=== PATIENT | male | born 1990 | race Caucasian/White ===

== ENCOUNTER 2018-11-24 21:02 | Emergency (ER) | payer SELFPAY ==
[2018-11-24 21:28] VITALS: BP 131/82
[2018-11-24] MEDS ORDERED: Ketorolac *IM* INJ* 60 MG/2 ML VIAL IM ONE (21:41)
[2018-11-24] MEDS ORDERED: Cyclobenzaprine TAB* 10 MG PO ONE (21:42)
[2018-11-24] MEDS ORDERED: Acyclovir* 200 MG CAP PO ONE (21:43)
--- NOTE | 2018-11-24 21:49 | UC ---
UC General HPI - HPI Summary HPI Summary: 28-year-old male comes in with a chief complaint of low back pain. Started yesterday at rest. It's in his middle lower back. He comes in spasms. It's worst in the middle of the back but it's on both sides also. Occasionally pain radiates down his buttocks into his legs. No weakness or numbness. Pain is worse with twisting turning bending. Some positions decrease the pain. He's taken acetaminophen without much relief. No change in bowel or bladder. Patient also has a painful rash in the left upper arm and left axilla. Describes it as an achy pain. No fevers or chills. - History of Current Complaint Chief Complaint: UCBackPain Stated Complaint: SKIN CONCERN/BACK PAIN Time Seen by Provider: 11/24/18 21:20 Pain Intensity: 6 - Allergy/Home Medications Allergies/Adverse Reactions: Allergies Allergy/AdvReac Type Severity Reaction Status Date / Time No Known Allergies Allergy Verified 11/24/18 21:26 Home Medications: Home Medications Acetaminophen [Tylenol Extra Strength] 1,000 mg PO DAILY 11/24/18 [History Confirmed 11/24/18] Atorvastatin* [Lipitor*] 20 mg PO DAILY 11/24/18 [History Confirmed 11/24/18] Cetirizine* [ZyrTEC 10 MG TAB*] 10 mg PO DAILY 11/24/18 [History Confirmed 11/24] Omeprazole Magnesium [Prilosec] 10 mg PO DAILY 11/24/18 [History Confirmed 11/24] sulfaSALAzine TAB* [Azulfidine TAB*] 1,000 mg PO BID 11/24/18 [History Confirmed 11/24/18] PMH/Surg Hx/FS Hx/Imm Hx Previously Healthy: Yes Other GI/ History: INFLAMMATORY BOWEL DISEASE - Surgical History Surgical History: Yes Surgery Procedure, Year, and Place: R shoulder surgery 2005 - Family History Known Family History: Positive: Non-Contributory - Social History Alcohol Use: Occasionally Substance Use Type: None Smoking Status (MU): Never Smoked Tobacco Review of Systems All Other Systems Reviewed And Are Negative: Yes Constitutional: Positive: Negative Skin: Positive: Rash - SEE HPI Eyes: Positive: Negative ENT: Positive: Negative Respiratory: Positive: Negative Cardiovascular: Positive: Negative Gastrointestinal: Positive: Negative Genitourinary: Positive: Negative Motor: Positive: Other - SEE HPI Neurovascular: Positive: Negative Musculoskeletal: Positive: Other: - SEE HPI Neurological: Positive: Negative Psychological: Positive: Negative Is Patient Immunocompromised?: Yes - ON SULFASALAZINE Physical Exam Triage Information Reviewed: Yes Appearance: Well-Appearing, Well-Nourished, Pain Distress - MILD WITH ROM OF LOW BACK Vital Signs: Initial Vital Signs Temp 98.5 F 11/24/18 21:21 Pulse 78 11/24/18 21:21 Resp 14 11/24/18 21:21 BP 131/82 11/24/18 21:21 Pulse Ox 99 11/24/18 21:21 Vital Signs Reviewed: Yes Eye Exam: Normal Eyes: Positive: Conjunctiva Clear Neck: Positive: Supple Respiratory: Positive: No respiratory distress Musculoskeletal: Positive: Other: - Tender to palpation mid lower back and both sides laterally at the same level. Legs have full range of motion full- strength no sensation deficit. Neurological: Positive: Alert, Muscle Tone Normal Psychological Exam: Normal Psychological: Positive: Normal Response To Family, Age Appropriate Behavior Skin: Positive: Other - Patches of raised erythematous rash in the left axilla and in the left trapezius area and also approximately to the upper thoracic area consistent with shingles. Course/Dx - Course Course Of Treatment: Further shingles starting the patient on valacyclovir 1 g by mouth 3 times a day 10 days. Patient is immunocompromised due to medication for his inflammatory bowel disease. Low back pain is on both sides he has no abdominal pain at its worse with position changes consistent with acute low back pain. He has no neurologic deficit no fever vital signs are stable. I wrote prescription for Flexeril he can also take acetaminophen. Due to his GI condition is been told to not take by mouth NSAIDs. Follow-up his primary care doctor get reevaluated sooner if worse or any questions or concerns. - Diagnoses Provider Diagnosis: Low back pain, Shingles Discharge - Sign-Out/Discharge Documenting (check all that apply): Patient Departure All imaging exams completed and their final reports reviewed: No Studies - Discharge Plan Condition: Stable Disposition: HOME Prescriptions: Cyclobenzaprine TAB* [Flexeril 10 MG TAB*] 10 mg PO TID PRN #15 tab MDD 3 PRN Reason: Pain Valacyclovir HCl [Valacyclovir] 1 gm PO TID #30 tab Patient Education Materials: Shingles (ED), Acute Low Back Pain (ED), Lower Back Exercises (ED) Referrals: [facility] [Outside] Additional Instructions: FOLLOW UP WITH YOUR DOCTOR IF NOT COMPLETELY IMPROVED. GET REEVALUATED SOONER IF WORSE; PAIN, FEVER, YOU FEEL ILL OR ANY QUESTIONS OR CONCERNS. - Billing Disposition and Condition Condition: STABLE Disposition: Home
== END 2018-11-24 22:03 | disposition home or self-care (01) ==
LOC: UCCORT 21:02
DX: M54.5 Low back pain (principal); B02.9 Zoster without complications; K63.89 Other specified diseases of intestine
CPT/HCPCS: 96372; 99202; A9270-GY; G0463; J1885

== ENCOUNTER 2019-01-18 12:18 | Emergency (ER) | payer BC | END 2019-01-18 12:34 | disposition left against medical advice (07) | LOC: UCCORT 12:18 | DX: M54.5 Low back pain (principal); Z53.21 Procedure and treatment not carried out due to patient leaving prior to being seen by health care provider ==

== ENCOUNTER 2019-07-18 17:43 | Emergency (ER) | payer BC ==
--- OUTSIDE RECORDS SUMMARY | 2019-07-18 18:00 | XMS REPORT | Continuity of Care Document ---
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 Problems Active Problems Provider Date Hyperlipidemia Dilip Cloud MD Onset: 01/19/2019 Nontoxic single thyroid nodule Dilip Cloud MD Onset: 01/19/2019 Mixed hyperlipidemia Cam Presley MD Onset: 01/20/2019 Gastroesophageal reflux disease Cam Presley MD Onset: 01/24/2019 Ulcerative colitis Cam Presley MD Onset: 01/24/2019 Social History Type Date Description Comments Sex Unknown Tobacco Use Start: Unknown Never Smoked Cigarettes Smoking Status Reviewed: 07/15/19 Never Smoked Cigarettes Smokeless Tobacco Never Used Smokeless Tobacco ETOH Use Occasionally consumes alcohol Tobacco Use Start: Unknown Patient denies history of smoking Recreational Drug Use Never Used Drugs Allergies, Adverse Reactions, Alerts Active Allergies Reaction Severity Comments Date Seasonal 01/19/2019 Medications Active Medications SIG Qnty Indications Ordering Provider Date Benzonatate 1 tab by mouth 30caps J06.9 Betty Foley, 07/15/2019 200mg three times a MD Capsules day as needed for cough. Albuterol Sulfate HFA inhale two 18units J06.9 Betty Foley, 07/15/2019 puffs by mouth 108(90Base) mcg/Act every 4 hours Aerosol as needed for cough and wheeze Sulfazine 2 tabs 2x a day 180tabs Cam Presley MD 500mg Tablets Levothyroxine Sodium Kade Reese MD 50mcg Tablets Famotidine Kade Reese MD 40mg Tablets History Medications Pantoprazole Sodium take 1 tablet by mouth 90tabs Dilip Cloud, 2018 - daily for 07/15/2019 40mg Tablets gastroesophageal reflux disease, 30 minutes before a meal Mesalamine rectally (retain for at 90units K51.90 Fernandez 03/17/2019 - 1000mg least 1 to 3 hours) at MD Cam 05/30/2019 Suppository bedtime Pantoprazole Sodium take daily 30 mins 60tabs K21.9 Fernandez, 03/17/2019 - before dinner MD Cam 04/26/2019 20mg Tablets Terbinafine HCL 1 tab by mouth every 42tabs B35.1 Dilip Cloud, 02/16/2019 - day as directed 05/30/2019 250mg Tablets Polyethylene Glycol Mix 238 g in 64 ounces; 238gm K51.90 Fernandez, 01/24/2019 - 3350 Finish half of the prep MD Cam 02/16/2019 3350NF Powder the day before and half director of medical education of the day of procedure (at least 4 hours before) Dulcolax 4 tablets taken at 8pm 4tabs K51.90 Fernandez, 01/24/2019 - 5mg the day before the MD Cam 02/16/2019 Tablets procedure Tramadol HCL one tab every 6 hours 5tabs M54.5 Dilip Cloud, 01/19/2019 - 50mg as needed for severe 01/24/2019 Tablets pain Immunizations Description No Information Available Vital Signs Date Vital Result Comment 07/15/2019 8:50am BP Systolic 120 mmHg BP Diastolic 88 mmHg Body Temperature 97.4 F Heart Rate 100 /min Respiratory Rate 18 /min Height 73.75 inches 6'1.75" Weight 269.00 lb BMI (Body Mass Index) 34.8 kg/m2 BSA (Body Surface Area) 2.46 m2 [place] body weight in kilograms 85 kg O2 % BldC Oximetry 96 % 05/30/2019 7:57am BP Systolic 124 mmHg BP Diastolic 74 mmHg Body Temperature 98.0 F Heart Rate 90 /min Respiratory Rate 18 /min Height 73.75 inches 6'1.75" Weight 266.00 lb BMI (Body Mass Index) 34.4 kg/m2 BSA (Body Surface Area) 2.45 m2 [place] body weight in kilograms 85 kg O2 % BldC Oximetry 97 % Results Test Acquired Date Facility Test Result H/L Range Note Laboratory test 07/15/2019 [facility] Inhouse Influenza A/B Negative finding Rapid Laboratory test 02/01/2019 [facility] Calprotectin, < 16 ug/g 0-120 1, [address] [place], [place] [id number] [phone] Laboratory test 01/24/2019 [facility] Sedimentation 15 mm/hr Normal 2-40 [address] Rate [place], [place] [id number] [phone] C-Reactive Protein,Quant 4.6 mg/L High <3.0 Calprotectin, Fecal <pending> Vitamin D,25-Hydroxy 34.9 ng/mL 30.0-100.0 4 CBC W/Automated 01/19/[address] [facility] [address] White Blood 6.9 K/uL Normal 3.4-10.[address] [place], [place] [id number] [phone] Red Blood Count 4.87 M/uL Normal 4.20-5.80 Hemoglobin 14.7 gm/dL Normal 12.8-17.0 Hematocrit 44.4 % Normal 38.0-48.0 Mean Cell Volume 91.2 fl Normal 80.0-96.0 Mean Corpuscular HGB 30.2 pg Normal 27.0-33.0 Mean Corpuscular HGB Conc 33.1 g/dL Normal 31.7-36.0 Platelet Count 340 K/uL Normal 155-360 Red Cell Distri Width SD 43.5 fl Normal 36-51 Red Cell Distri Width %CV 13.1 % Normal 11.6-15.8 Mean Platelet Volume 10.1 fl Normal 6.6-10.6 Neut% 48.2 % Normal 33.0-73.0 Lymph % 41.2 % Normal 20.0-42.0 Stevens % 7.6 % Normal 0.0-10.0 Eo% 2.3 % Normal 0.0-6.6 Bas% 0.4 % Normal 0.0-1.1 Immature Grans 0.3 % Normal 0.0-5.0 NRBC % 0.0 /100WBC < 10/ 100 WBC Neut# 3.30 K/uL Normal 1.8-7.0 Lymph # 2.82 K/uL Normal 1.0-4.0 Stevens # 0.52 K/uL Normal 0.0-0.8 Eos # 0.16 K/uL Normal 0.0-0.5 Baso # 0.03 K/uL Normal 0.0-0.1 Immature Grans Absolute 0.02 K/uL NRBC # 0.00 K/uL Comprehensive 01/19/[address] Glucose 78 mg/dL Normal 74-106 Metabolic Panel [address] [place] [address] [phone] BUN 16 mg/dL Normal 7-18 Creatinine 1.3 mg/dL Normal 0.6-1.3 Glom Filtration Rate, Estimate >60 mL/min >60 If >60 mL/min >60 6 BUN/Creat 12.3 ratio Sodium 138 mmol/L Normal 136-145 Potassium 3.9 mmol/L Normal 3.5-5.1 Chloride 105 mmol/L Normal 98-107 Carbon Dioxide 28 mmol/L Normal 21-32 Anion Gap 5 mEq/L Low 8-16 Calcium 9.1 mg/dL Normal 8.5-10.1 Total Protein 8.5 g/dL High 6.4-8.2 Albumin 4.2 g/dL Normal 3.4-5.0 Globulin 4.3 g/dL Normal 1.9-4.3 Alb/Glob 1.0 ratio Bilirubin,Total 0.4 mg/dL Normal 0.2-1.0 Sgot/Ast 22 U/L Normal 15-37 SGPT/Alt 32 U/L Normal 12-78 Alkaline Phosphatase 79 U/L Normal 45-117 LDL Cholesterol Profile 01/19/[address] Cholesterol 193 mg/dL <200 7 [address] [place] [address] [phone] Triglycerides 141 mg/dL <150 8 HDL Cholesterol 36 mg/dL Low >40 9 LDL-Cholesterol 129 mg/dL < 100 10 Glycohemoglobin 01/19/[address] Glycohemoglobin 5.3 % Normal 4.2-6.3 11 A1c [address] [facility] (A1c) [place] [address] [phone] eAG 105 mg/dL T7/TSH 01/19/[address] [facility] [address] T3 Uptake 32 % Normal 31-39 [address] [place] [address] [phone] Thyroxine (T4) 10.1 g/dL Normal 4.7-13.3 T7 3.23 g/dL Low 5.0-12.0 Thyroid Stim Hormone 2.19 uIU/mL Normal 0.30-4.20 1 K51.90 2 Concentration Interpretation Follow-Up <16 - 50 ug/g Normal None >50 -120 ug/g Borderline Re-evaluate in 4-6 weeks >120 ug/g Abnormal Repeat as clinically indicated Performed at: - [facility] [address] [id number] Commerce Marketing Analyst: Crystal Lucas MD, Phone: [phone] This result was obtained with an ESR method that is not based on the standard Westergren Method. When comparing results obtained from the traditional Westergren ESR and this method it is important to refer to the reference range for each method. Method: Capillary Photometry 4 Vitamin D deficiency has been defined by the [place] of [employer] and an Endocrine Society practice guideline as a level of serum 25-OH vitamin D less than 20 ng/mL (1,2). The Endocrine Society went on to further define vitamin D insufficiency as a level between 21 and 29 ng/mL (2). 1. IOM ([place] of [employer]). 2010. Dietary reference intakes for calcium and D. [place]: The National Academies Press. 2. Ezio MF, Madi NC, Irene RHOADES, et al. Evaluation, treatment, and prevention of vitamin D deficiency: an Endocrine Society clinical practice guideline. JCEM. 2010; 96(7):1911-30. Performed at: - [facility] [address] [id number] [employer] Analyst: Anna Barone MD, Phone: [phone] Z13.0 Z13.6 Z13.1 Z13.29 6 Note: Persistent reduction for 3 months or more in an eGFR <60 mL/min/1.73 m2 defines CKD. Patients with eGFR values >/=60 mL/min/1.73 m2 may also have CKD if evidence of persistent proteinuria is present. The original MDRD equation for estimated GFR is not valid for patients less than 18 years of age. Additional information may be found at www.kdoqi.org. 7 Reference Guidelines*: Desirable: ........... < 200 mg/dL Borderline High: ..... 200-239 mg/dL High: ................ >= 240 mg/dL * The National Cholesterol Education Program (NCEP) 8 Reference Guidelines*: Normal: ............. < 150 mg/dL Borderline High: .... 150-199 mg/dL High: ............... 200-499 mg/dL Very High: .......... > 500 mg/dL * Source: National Cholesterol Education Program (NCEP) 9 Reference Guidelines*: Low HDL: ..... < 40 mg/dL Normal: ..... 40-60 mg/dL Desirable: ... > 60 mg/dL *The National Cholesterol Education Program(NCEP) 10 Reference Guidelines*: Optimal:........... <100 mg/dL Near Optimal....... 100-129 mg/dL Borderline High.... 130-159 mg/dL High............... 160-189 mg/dL Very High.......... >=190 mg/dL * Source: National Cholesterol Education Program (NCEP) 11 Elevated levels of HbA1c suggest the need for more aggressive treatment of glycemia. The [place] Diabetes Association recommends that a primary goal of therapy should be a HbA1c of <7% and that physicians should re-evaluate the treatment regimen in patients with HbA1c values consistently >8%. Procedures Date Code Description Status 02/23/2019 06602 Colonoscopy With Biopsy Completed 02/23/2019 40020 EGD With Biopsy Completed 02/23/2019 [id number] Colonoscopy Completed 10/06/2018 21491971 Colonoscopy Completed Medical Devices Description No Information Available Encounters Type Date Location Provider Dx Diagnosis Office Visit 05/30/2019 Family Medicine Dilip Cloud MD J38.3 Other diseases of 7:[address]a [address] vocal cords K21.9 Gastro-esophageal reflux disease without esophagitis E04.1 Nontoxic single thyroid nodule Office Visit 03/17/2019 10:30a GI Cam Presley MD K51.90 Ulcerative colitis, unspecified, without complications K21.9 Gastro-esophageal reflux disease without esophagitis Office Visit 02/16/2019 10:10a Family Medicine Dilip Cloud MD B35.[address] D22.5 Melanocytic nevi of trunk R06.02 Shortness of breath Office Visit 01/24/2019 10:50a GI Cam Presley MD K51.90 Ulcerative colitis, unspecified, without complications K21.9 Gastro-esophageal reflux disease without esophagitis B96.81 Helicobacter pylori as the cause of diseases classd elsr Assessments Date Code Description Provider 07/15/2019 J06.9 Acute upper respiratory infection, unspecified Shantelle Syed PA 05/30/2019 J38.3 Other diseases of vocal cords Dilip Cloud MD 05/30/2019 K21.9 Gastro-esophageal reflux disease without Dilip Cloud MD esophagitis 05/30/2019 E04.1 Nontoxic single thyroid nodule Dilip Cloud MD 03/17/2019 K51.90 Ulcerative colitis, unspecified, without Cam Presley MD complications 03/17/2019 K21.9 Gastro-esophageal reflux disease without Cam Presley MD esophagitis 02/23/2019 K52.9 Noninfective gastroenteritis and colitis, Cam Presley MD unspecified 02/23/2019 K26.9 Duodenal ulcer, unspecified as acute or chronic, Cam Presley MD without hemorrhage or perforation 02/23/2019 K29.50 Unspecified chronic gastritis without bleeding Cam Presley MD 02/23/2019 K63.89 Other specified diseases of intestine Cam Presley MD 02/16/2019 B35.1 Tinea unguium Dilip Cloud MD 02/16/2019 D22.5 Melanocytic nevi of trunk Dilip Cloud MD 02/16/2019 R06.02 Shortness of breath Dilip Cloud MD 01/24/2019 K51.90 Ulcerative colitis, unspecified, without Cam Presley MD complications 01/24/2019 K21.9 Gastro-esophageal reflux disease without Cam Presley MD esophagitis 01/24/2019 B96.81 Helicobacter pylori [H. pylori] as the cause of Cam Presley MD diseases classified elsewhere 01/19/2019 Z00.01 Encounter for general adult medical examination Dilip Cloud MD with abnormal findings 01/19/2019 M54.5 Low back pain Dilip Cloud MD 01/19/2019 E04.1 Nontoxic single thyroid nodule Dilip Cloud MD 01/19/2019 K63.89 Other specified diseases of intestine Dilip Cloud MD 01/19/2019 E78.5 Hyperlipidemia, unspecified Dilip Cloud MD 01/19/2019 Z13.6 Encounter for screening for cardiovascular Dilip Cloud MD disorders 01/19/2019 Z13.0 Encounter for screening for diseases of the blood Dilip Cloud MD and blood-forming organs and certain disorders involving the immune mechanism 01/19/2019 Z13.1 Encounter for screening for diabetes mellitus Dilip Cloud MD 01/19/2019 Z13.29 Encounter for screening for other suspected Dilip Cloud MD endocrine disorder Plan of Treatment Future Appointment(s):08/26/2019 8:30 am - Cam Presley MD at GI07/15/2019 - Shantelle Syed PAJ06.9 Acute upper respiratory infection, unspecifiedNew Medication:Benzonatate 200 mg - 1 tab by mouth three times a day as needed for cough.Albuterol Sulfate HFA 108(90 Base) mcg/Act - inhale two puffs by mouth every 4 hours as needed for cough and wheezeComments:Flu test is negative todayNo fever is present; Symptoms are consistent with Viral URI. Stayhome, stay hydrated. Rest. Alternate Tylenol and Motrin as needed for fever and pain. Functional Status Description No Information Available Mental Status Description No Information Available Referrals Refer to Reason for Referral Status Appt Date Kade Reese MD 29M hoarse voice Closed 06/20/[address] [place] [address] [phone] Sahra Moody MD Patient Declined 03/30/2019 [facility] [address] [facility] [place] [address] [phone] Kade Reese MD Closed 02/28/2019 [address] [place] [address] [phone] Cam Presley MD Closed 01/24/2019 [address], [address] [place] [address] [phone]
--- OUTSIDE RECORDS SUMMARY | 2019-07-18 18:00 | XMS REPORT | Continuity of Care Document ---
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 Problems Active Problems Provider Date Hyperlipidemia Dilip [...] Date Benzonatate 1 tab by mouth 30caps J06.Betty Jackson, 07/15/2019 200mg three times a MD Capsules [...] Mesalamine rectally (retain for at 90units K51.90 Fernandez, 03/17/2019 - 1000mg least 1 to 3 [...] 3350NF Powder the day before and half early childhood aide classroom of the day of procedure (at least [...] kg/m2 BSA (Body Surface Area) 2.46 m2 [place] body weight in kilograms 85 kg O2 % BldC Oximetry 96 % 05/30/2019 7:57am BP Systolic 124 mmHg BP Diastolic 74 mmHg Body Temperature 98.0 F Heart Rate 90 /min Respiratory Rate 18 /min Height 73.75 inches 6'1.75" Weight 266.00 lb BMI (Body Mass Index) 34.4 kg/m2 BSA (Body Surface Area) 2.45 m2 [place] body weight in kilograms 85 kg O2 % BldC Oximetry 97 % Results Test Acquired Date Facility Test Result H/L Range Note Laboratory test 07/15/2019 [facility] Inhouse Influenza A/B Negative finding Rapid Laboratory test 02/01/2019 [facility] Calprotectin, < 16 ug/g 0-120 1, [address] Fecal [place], [place] [id number] [phone] Laboratory test 01/24/2019 [facility] Sedimentation 15 mm/hr Normal 2-40 [address] Rate [place], [place] [address] [phone] C-Reactive Protein,Quant 4.6 mg/L High <3.0 Calprotectin, Fecal <pending> Vitamin D,25-Hydroxy 34.9 ng/mL 30.0-100.0 4 CBC W/Automated 01/19/[address] [facility] [address] White Blood 6.9 K/uL Normal 3.4-10.5 [address] Count [place], [place] [address] [phone] Red Blood Count 4.87 M/uL Normal 4.20-5.80 [...] 33.0-73.0 Lymph % 41.2 % Normal 20.0-42.0 [place] % 7.6 % Normal 0.0-10.0 Eo% 2.3 % Normal 0.0-6.6 Bas% 0.4 % Normal 0.0-1.1 Immature Grans 0.3 % Normal 0.0-5.0 NRBC % 0.0 /100WBC < 10/ 100 WBC Neut# 3.30 K/uL Normal 1.8-7.0 Lymph # 2.82 K/uL Normal 1.0-4.0 [place] # 0.52 K/uL Normal 0.0-0.8 Eos # 0.16 K/uL Normal 0.0-0.5 Baso # 0.03 K/uL Normal 0.0-0.1 Immature Grans Absolute 0.02 K/uL NRBC # 0.00 K/uL Comprehensive 01/19/[address] Glucose 78 mg/dL Normal 74-106 Metabolic Panel 4077 [place] [address] [phone] BUN 16 mg/dL Normal 7-18 Creatinine 1.3 [...] U/L Normal 45-117 LDL Cholesterol Profile 01/19/[address] Cholesterol 193 mg/dL <200 7 4077 [place] [address] [phone] Triglycerides 141 mg/dL <150 8 HDL Cholesterol 36 mg/dL Low >40 9 LDL-Cholesterol 129 mg/dL < 100 10 Glycohemoglobin 01/19/[address] Glycohemoglobin 5.3 % Normal 4.2-6.3 11 A1c 4077 [facility] (A1c) [place] [address] [phone] eAG 105 mg/dL T7/TSH 01/19/[address] [facility] [address] T3 Uptake 32 % Normal 31-39 40[address] [place] [address] [phone] Thyroxine (T4) 10.1 g/dL Normal 4.7-13.3 T7 3.23 g/dL Low 5.0-12.0 Thyroid Stim Hormone 2.19 uIU/mL Normal 0.30-4.20 1 K51.90 2 Concentration Interpretation Follow-Up <16 - 50 ug/g Normal None >50 -120 ug/g Borderline Re-evaluate in 4-6 weeks >120 ug/g Abnormal Repeat as clinically indicated Performed at: - [facility] [id number] Pediatric Lpn: Crystal Lucas MD, Phone: [phone] This result was obtained with an ESR method that is not based on the standard Westergren Method. When comparing results obtained from the traditional Westergren ESR and this method it is important to refer to the reference range for each method. Method: Capillary Photometry 4 Vitamin D deficiency has been defined by the [place] of Medicine and an Endocrine Society practice guideline as a level of serum 25-OH vitamin D less than 20 ng/mL (1,2). The Endocrine Society went on to further define vitamin D insufficiency as a level between 21 and 29 ng/mL (2). 1. IOM ([place] of Medicine). 2010. Dietary reference intakes for calcium and D. [place]: The National Academies Press. 2. Ezio MF, Madi NC, Irene RHOADES, et al. Evaluation, treatment, and prevention of vitamin D deficiency: an Endocrine Society clinical practice guideline. JCEM. 2010; 96(7):1911-30. Performed at: - [facility] [address] [id number] Pediatric Lpn: Anna Barone MD, Phone: [phone] Z13.0 Z13.6 Z13.1 Z13.29 6 Note: [...] for more aggressive treatment of glycemia. The [place] Diabetes Association recommends that a primary goal of therapy should be a HbA1c of <7% and that physicians should re-evaluate the treatment regimen in patients with HbA1c values consistently >8%. Procedures Date Code Description Status 02/23/2019 12598 Colonoscopy With Biopsy Completed 02/23/2019 57930 EGD With Biopsy Completed 02/23/2019 62283341 Colonoscopy Completed 10/06/2018 24319050 Colonoscopy Completed Medical Devices Description No Information Available Encounters Type Date Location Provider Dx Diagnosis Office Visit 07/15/2019 [facility], [place] J06.9 Acute upper 8:[address] respiratory infection, unspecified Office Visit 05/30/2019 [facility] Dilip Cloud MD J38.3 Other diseases of 7:50a [address] vocal cords K21.9 Gastro-esophageal reflux disease without esophagitis E04.1 Nontoxic single thyroid nodule Office Visit 03/17/2019 10:30a GI Cam Presley MD K51.90 Ulcerative colitis, unspecified, without complications K21.9 Gastro-esophageal reflux disease without esophagitis Office Visit 02/16/2019 10:10a [facility] Medicine Dilip Cloud MD B35.[address] D22.5 Melanocytic nevi of trunk R06.02 Shortness of breath Office Visit 01/24/2019 10:50a GI Cam Presley MD K51.90 Ulcerative colitis, unspecified, without complications K21.9 Gastro-esophageal reflux disease without esophagitis B96.81 Helicobacter pylori as the cause of diseases classd [facility] Assessments Date Code Description Provider 07/15/2019 J06.9 [...] Description No Information Available Referrals Refer to Dr Reason for Referral Status Appt Date Kade Reese MD 30M hoarse voice Closed 06/20/[address] [place] [address] [phone] Sahra Moody MD Patient Declined 03/30/2019 [facility] [address] [facility], [address] [place] [address] [phone] Kade Reese MD Closed 02/28/2019 [address] [place] [address] [phone] Cam Presley MD Closed 01/24/2019 [address], [address] [place] [address] [phone]
--- OUTSIDE RECORDS SUMMARY | 2019-07-18 18:00 | XMS REPORT | Continuity of Care Document ---
:1990 External Reference #:[id number] Author Name Dilip Cloud MD Address [address] [place] [id number] Care Team Providers Name Role Phone Chico Esparza MD - Family Care Team Information [employer] Lead Medicine Dilip Cloud MD - Family Medicine Care Team Information [employer] Lead Problems Active Problems Provider Date Hyperlipidemia Dilip Cloud MD Onset: 01/19/2019 Nontoxic single thyroid nodule Dilip Cloud MD Onset: 01/19/2019 Mixed hyperlipidemia Cam Presley MD Onset: 01/20/2019 Gastroesophageal reflux disease Cam Presley MD Onset: 01/24/2019 Ulcerative colitis Cam Presley MD Onset: 01/24/2019 Social History Type Date Description Comments Sex Unknown Tobacco Use Start: Unknown Never Smoked Cigarettes Smoking Status Reviewed: 05/30/19 Never Smoked Cigarettes Smokeless Tobacco Never Used Smokeless Tobacco ETOH Use Occasionally consumes alcohol Tobacco Use Start: Unknown Patient denies history of smoking Recreational Drug Use Never Used Drugs Allergies, Adverse Reactions, Alerts Active Allergies Reaction Severity Comments Date Seasonal 01/19/2019 Medications Active Medications SIG Qnty Indications Ordering Date Provider Pantoprazole Sodium take 1 tablet by mouth 90tabs Dilip Cloud, 04/26/2019 daily for 40mg Tablets gastroesophageal reflux disease, 30 minutes before a meal Sulfazine 2 tabs 4x a day Unknown 500mg Tablets History Medications Mesalamine rectally (retain 90units K51.90 Cam Presley, 03/17/2019 - 1000mg for at least 1 to 05/30/2019 Suppository 3 hours) at bedtime Pantoprazole Sodium take daily 30 60tabs K21.9 Cam Presley, 03/17/2019 - mins before 04/26/[address] dinner Terbinafine HCL 1 tab by mouth 42tabs B35.1 Dilip Cloud MD 02/16/2019 - 250mg every day as 05/30/2019 Tablets directed Polyethylene Glycol Mix 238 g in 64 238gm K51.90 Cam Presley, 2018 - 3350 ounces; Finish 02/16/2019 3350NF Powder half of the prep the day before and half tool machine set up operator of the day of procedure (at least 4 hours before) Dulcolax 4 tablets taken 4tabs K51.90 Cam Presley, 01/24/2019 - 5mg Tablets at 8pm the day 02/16/2019 before the procedure Tramadol HCL one tab every 6 5tabs M54.5 Dilip Cloud MD 01/19/2019 - 50mg hours as needed 01/24/2019 Tablets for severe pain Immunizations Description No Information Available Vital Signs Date Vital Result Comment 05/30/2019 7:57am BP Systolic 124 mmHg BP Diastolic 74 mmHg Body Temperature 98.0 F Heart Rate 90 /min Respiratory Rate 18 /min Height 73.75 inches 6'1.75" Weight 266.00 lb BMI (Body Mass Index) 34.4 kg/m2 BSA (Body Surface Area) 2.45 m2 [place] body weight in kilograms 85 kg O2 % BldC Oximetry 97 % 03/17/2019 10:35am BP Systolic Sitting Left Arm 116 mmHg BP Diastolic Sitting Left Arm 76 mmHg Body Temperature 98.2 F Heart Rate 63 /min Respiratory Rate 16 /min Height 73.75 inches 6'1.75" Weight 260.00 lb Pain Level 7 lower back98 BMI (Body Mass Index) 33.6 kg/m2 BSA (Body Surface Area) 2.42 m2 [place] body weight in kilograms 85 kg O2 % BldC Oximetry 97 % Ra Results Test Acquired Date Facility Test Result H/L Range Note Laboratory test 02/01/2019 [facility] Calprotectin, < 16 ug/g 0-120 1, [address] [place] [address] [phone] Laboratory test 01/24/2019 [facility] Sedimentation 15 mm/hr Normal 2-40 [address] [place] [address] [phone] C-Reactive Protein,Quant 4.6 mg/L High <3.0 Calprotectin, Fecal <pending> Vitamin D,25-Hydroxy 34.9 ng/mL 30.0-100.0 4 CBC W/Automated 01/19/[address] White Blood 6.9 K/uL Normal 3.4-10.5 [address] Count [place], [place] [address] [phone] Red Blood Count 4.87 M/uL Normal 4.20-5.80 [...] 33.0-73.0 Lymph % 41.2 % Normal 20.0-42.0 [place] % 7.6 % Normal 0.0-10.0 Eo% 2.3 % Normal 0.0-6.6 Bas% 0.4 % Normal 0.0-1.1 Immature Grans 0.3 % Normal 0.0-5.0 NRBC % 0.0 /100WBC < 10/ 100 WBC Neut# 3.30 K/uL Normal 1.8-7.0 Lymph # 2.82 K/uL Normal 1.0-4.0 [place] # 0.52 K/uL Normal 0.0-0.8 Eos # 0.16 K/uL Normal 0.0-0.5 Baso # 0.03 K/uL Normal 0.0-0.1 Immature Grans Absolute 0.02 K/uL NRBC # 0.00 K/uL Comprehensive 01/19/[address] Glucose 78 mg/dL Normal 74-106 Metabolic Panel 4077 [place] [address] [phone] BUN 16 mg/dL Normal 7-18 Creatinine 1.3 [...] U/L Normal 45-117 LDL Cholesterol Profile 01/19/[address] Cholesterol 193 mg/dL <200 7 40[address] [place] [address] [phone] Triglycerides 141 mg/dL <150 8 HDL Cholesterol 36 mg/dL Low >40 9 LDL-Cholesterol 129 mg/dL < 100 10 Glycohemoglobin 01/19/[address] Glycohemoglobin 5.3 % Normal 4.2-6.3 11 A1c 4077 [facility] (A1c) [place] [address] [phone] eAG 105 mg/dL T7/TSH 01/19/[address] T3 Uptake 32 % Normal 31-39 40[address] [place] [address] [phone] Thyroxine (T4) 10.1 g/dL Normal 4.7-13.3 T7 3.23 g/dL Low 5.0-12.0 Thyroid Stim Hormone 2.19 uIU/mL Normal 0.30-4.20 1 K51.90 2 Concentration Interpretation Follow-Up <16 - 50 ug/g Normal None >50 -120 ug/g Borderline Re-evaluate in 4-6 weeks >120 ug/g Abnormal Repeat as clinically indicated Performed at: BN - [facility] [address] [id number] Home Health Manager: Crystal Lucas MD, Phone: [phone] This result was obtained with an ESR method that is not based on the standard Westergren Method. When comparing results obtained from the traditional Westergren ESR and this method it is important to refer to the reference range for each method. Method: Capillary Photometry 4 Vitamin D deficiency has been defined by the [place] of Medicine and an Endocrine Society practice guideline as a level of serum 25-OH vitamin D less than 20 ng/mL (1,2). The Endocrine Society went on to further define vitamin D insufficiency as a level between 21 and 29 ng/mL (2). 1. IOM ([place] of Medicine). 2010. Dietary reference intakes for calcium and D. [place]: The National Academies Press. 2. Ezio MF, Madi [place], Irene RHOADES, et al. Evaluation, treatment, and prevention of vitamin D deficiency: an Endocrine Society clinical practice guideline. JCEM. 2010; 96(7):1911-30. Performed at: RN - [facility] [address] [id number] Home Health Manager: Anna Barone MD, Phone: [phone] 5 Z13.0 Z13.6 Z13.1 Z13.29 6 Note: [...] for more aggressive treatment of glycemia. The [place] Diabetes Association recommends that a primary goal of therapy should be a HbA1c of <7% and that physicians should re-evaluate the treatment regimen in patients with HbA1c values consistently >8%. Procedures Date Code Description Status 02/23/2019 52640 Colonoscopy With Biopsy Completed 02/23/2019 68131 EGD With Biopsy Completed 02/23/2019 [id number] Colonoscopy Completed 10/06/2018 95898138 Colonoscopy Completed Medical Devices Description No Information Available Encounters Type Date Location Provider Dx Diagnosis Office Visit 05/30/2019 Family Medicine Dilip Cloud MD J38.3 Other diseases of 7:[address] vocal cords K21.9 Gastro-esophageal reflux disease without esophagitis E04.1 Nontoxic single thyroid nodule Office Visit 03/17/2019 10:30a Cam Samuel MD K51.90 Ulcerative colitis, unspecified, without complications K21.9 Gastro-esophageal reflux disease without esophagitis Office Visit 02/16/2019 10:10a Family Medicine Dilip Cloud MD B35.[address] D22.5 Melanocytic nevi of trunk R06.02 Shortness of breath Office Visit 01/24/2019 10:50a Cam Samuel MD K51.90 Ulcerative colitis, unspecified, without complications K21.9 Gastro-esophageal reflux disease without esophagitis B96.81 Helicobacter pylori as the cause of diseases classd [facility] Assessments Date Code Description Provider 05/30/2019 J38.3 Other diseases of vocal cords [...] Cloud MD endocrine disorder Plan of Treatment No Information Available Functional Status Description No Information Available Mental Status Description No Information Available Referrals Refer to Dr Reason for Referral Status Appt Date Sahra Moody MD Patient Declined 03/30/2019 [facility] [address] [facility], [address] [place] [address] [phone] Kade Reese MD Closed 02/28/2019 [address] [place] [address] [phone] Cam Presley MD Closed 01/24/2019 [address], [address] [place] [address] [phone]
--- OUTSIDE RECORDS SUMMARY | 2019-07-18 18:00 | XMS REPORT | Continuity of Care Document ---
:1990 External Reference #:[id number] Author Name Kade Reese M.D. (transmitted by agent of provider Brunilda Hubbard) Address [address] [place] [address] Care Team Providers Name Role Phone Dilip Cloud MD - Family Medicine Care Team Information Resident Care Spec Problems Description No Information Available Social History Type Date Description Comments Sex Male Allergies, Adverse Reactions, Alerts Description No Known Drug Allergies Medications Description No Active Medications Immunizations Description No Information Available Vital Signs Date Vital Result Comment 07/01/2019 7:55am Weight 263.00 lb Height 73.25 inches 6'1.25" BMI (Body Mass Index) 34.5 kg/m2 BP Systolic 119 mmHg BP Diastolic 76 mmHg Heart Rate 69 /min O2 % BldC Oximetry 98 % Body Temperature 97.0 F Pain Level 6 03/29/2019 8:32am Weight 262.00 lb Height 73.25 inches 6'1.25" BMI (Body Mass Index) 34.3 kg/m2 BP Systolic 147 mmHg BP Diastolic 71 mmHg Heart Rate 98 /min O2 % BldC Oximetry 97 % Body Temperature 96.9 F Pain Level 0 Results Test Acquired Date Facility Test Result H/L Range Note Laboratory test 03/21/2019 [facility] Cytology SEE RESULT 1 , [address] Non-Server Manager BELOW [place], [place] [address] [phone] 1 [id number] 2 SEE RESULT BELOW Name: KONSTANTIN HALL : [address]: Kade Reese MD Acct: [id number] Unit: [id number] AGE: 29 Location: [facility] Re03/21/19 SEX: M Status: REG REF SPEC: [id number] TIFFANIE: 03/21/[address] [facility] [address]: Kade Reese MD REQ: [id number] RECD: 03/21/19 STATUS: SOUT _ ORDERED: FNA INTERP [facility] COMMENTS: [id number] FINAL DIAGNOSIS Thyroid, left, fine needle aspiration: Benign thyroid nodule, involutional type ([place] class II). The specimen demonstrates abundant watery proteinaceous fluid, a modest amount of benign appearing follicular epithelium arranged in uniform sheets, medium sized follicles and only occasional small groups. Abundant pigmented and non-pigmented macrophages are seen in the background. No features of papillary carcinoma are seen. In this clinical setting the risk of malignancy is less than 3%. Clinical management of this thyroid nodule should be based on clinical and radiographic features as well as the above findings. SPECIMEN(S) RECEIVED THYROID LEFT - LEFT THYROID FINE NEEDLE ASPIRATION CONTINUED ON NEXT PAGE DEPARTMENT OF PATHOLOGY, [address] [place] [address] Geovani Rader M.D. Director [facility] # [id number] CLINICAL HISTORY Left thyroid nodule. GROSS DESCRIPTION 1 Alcohol fixed slide(s) received from clinician, 5 Air dried slide(s), and Needle rinse in CytoLyt solution for thin layer non-network technical analyst test.(clear) Signed by and Reported on: Geno Andujar MD 03/23/19 3007 END OF REPORT DEPARTMENT OF PATHOLOGY, [address] [place] [address] Geovani Rader M.D. Director [facility] # [id number] Procedures Date Code Description Status 03/21/2019 06244 Fine Needle Aspiration Biopsy Inl Ultrasound Guidance Completed 02/28/2019 35069 Ultrasound Head/Neck Completed 02/28/2019 28568 Fiberoptic Laryngoscopy,Diag. Completed Medical Devices Description No Information Available Encounters Type Date Location Provider Dx Diagnosis Office Visit 03/29/2019 8:30a Main Office Kade Reese M.D. R53.83 Other fatigue E04.1 Nontoxic single thyroid nodule Office Visit 02/28/2019 11:45a Main Office Kade Reese E04.1 Nontoxic single M.D. thyroid nodule K21.9 Gastro-esophageal reflux disease without esophagitis Assessments Date Code Description Provider 03/29/2019 R53.83 Other fatigue Kade Reese M.D. 03/29/2019 E04.1 Nontoxic single thyroid nodule Kade Reese M.D. 03/21/2019 E04.1 Nontoxic single thyroid nodule Kade Reese M.D. 02/28/2019 E04.1 Nontoxic single thyroid nodule Kade Reese M.D. 02/28/2019 K21.9 Gastro-esophageal reflux disease without Kade Reese M.D. esophagitis Plan of Treatment No Information Available Functional Status Description No Information Available Mental Status Description No Information Available Referrals Description No Information Available
[2019-07-18 18:10] VITALS: BP 133/74
--- NOTE | 2019-07-18 18:19 | UC ---
Respiratory Complaint HPI - HPI Summary HPI Summary: Since Thursday pt felt hot/cold flashes and cough. Saw PCP on Thursday, dx URI and rx tessalon for cough; negative for flu test. - History of Current Complaint Chief Complaint: UCRespiratory Stated Complaint: COUGH, HEADACHE Time Seen by Provider: 07/18/19 18:08 Hx Obtained From: Patient Onset/Duration: Sudden Onset, Lasting Days Timing: Constant Severity Initially: Moderate Severity Currently: Moderate Pain Intensity: 4 Character: Cough: Nonproductive - Allergies/Home Medications Allergies/Adverse Reactions: Allergies Allergy/AdvReac Type Severity Reaction Status Date / Time No Known Allergies Allergy Verified 07/18/19 18:04 Home Medications: Home Medications Omeprazole Magnesium [Prilosec] 10 mg PO DAILY 11/24/18 [History Confirmed 07/17] sulfaSALAzine TAB* [Azulfidine TAB*] 1,000 mg PO BID 11/24/18 [History Confirmed 07/18/19] Levothyroxine TAB* [Synthroid TAB*] 25 mcg PO DAILY 07/18/19 [History Confirmed 07/18/19] PMH/Surg Hx/FS Hx/Imm Hx Previously Healthy: Yes - Surgical History Surgical History: Yes Surgery Procedure, Year, and Place: R shoulder surgery 2005 - Family History Known Family History: Negative: Hypertension - Social History Alcohol Use: Occasionally Substance Use Type: None Smoking Status (MU): Never Smoked Tobacco Review of Systems All Other Systems Reviewed And Are Negative: Yes Constitutional: Positive: Fever ENT: Positive: Sore Throat Respiratory: Positive: Cough Neurological/Mental Status: Positive: Headache Is Patient Immunocompromised?: No Physical Exam Triage Information Reviewed: Yes Appearance: Well-Nourished, Ill-Appearing, Pain Distress Vital Signs: Initial Vital Signs Temp 98 F 07/18/19 18:06 Pulse 89 07/18/19 18:06 Resp 20 07/18/19 18:06 BP 133/74 07/18/19 18:06 Pulse Ox 97 07/18/19 18:06 Vital Signs Reviewed: Yes Eye Exam: Normal ENT: Positive: Pharyngeal erythema - with pnd, TMs normal Neck exam: Normal Neck: Positive: Supple, Nontender, No Lymphadenopathy Respiratory: Positive: Decreased breath sounds - lower lobes, Wheezing Cardiovascular Exam: Normal Cardiovascular: Positive: RRR, No Murmur, Pulses Normal Abdominal Exam: Normal Bowel Sounds: Positive: Present Musculoskeletal Exam: Normal Neurological Exam: Normal Psychological Exam: Normal Skin Exam: Normal Respiratory Course/Dx - Course Course Of Treatment: hx obtained, exam performed ,meds reviewed, chest xray obtained, duo neb given. - Differential Dx/Diagnosis Differential Diagnosis/HQI/PQRI: Asthma, Bronchitis, Sinusitis Discharge ED - Sign-Out/Discharge Documenting (check all that apply): Patient Departure All imaging exams completed and their final reports reviewed: No - Discharge Plan Condition: Stable Disposition: HOME Referrals: Dilip Cloud MD [Primary Care Provider] - - Billing Disposition and Condition Condition: STABLE Disposition: Home
[2019-07-18] MEDS ORDERED: Albuterol/Ipratropium NEB.SOL* Albuterol 2.5 MG/Ipratropium 0.5 MG 3 ML INH ONE (18:27)
--- NOTE | 2019-07-19 13:14 | UC ---
- Progress Note Progress Note: chest xray report : IMPRESSION: #. Suboptimal inspiration with resulting crowding of the pulmonary markings and subsegmental atelectasis. Course/Dx - Diagnoses Provider Diagnoses: Cough Discharge ED - Sign-Out/Discharge Documenting (check all that apply): Patient Departure All imaging exams completed and their final reports reviewed: Yes - Discharge Plan Condition: Stable Disposition: HOME Prescriptions: Azithromyxin NANCY (NF) [Z-Nancy (Zithromax) 250 mg tabs #6] 2 tab PO .TODAY, THEN 1 DAILY #6 tab predniSONE [Prednisone 20 MG TAB] 40 mg PO DAILY #10 tablet Patient Education Materials: Sinusitis (ED), Acute Bronchitis (ED) Referrals: Dilip Cloud MD [Primary Care Provider] - Additional Instructions: 1. take the medication as prescribed. 2. Rest and increase fluids 3. Humidification of the air in the home 4. Tylenol as needed for pain and fever - Billing Disposition and Condition Condition: STABLE Disposition: Home
== END 2019-07-18 19:35 | disposition home or self-care (01) ==
LOC: UCCORT 17:43
DX: R05 Cough (principal); J98.11 Atelectasis; R51 Headache; R50.9 Fever, unspecified; J02.9 Acute pharyngitis, unspecified
CPT/HCPCS: 71046; 99212; A9270-GY; G0463